=== PATIENT | male | born 1970 | race Caucasian/White ===

== ENCOUNTER → 2018-02-06 09:00 | Outpatient (CLI) | payer OTHER, SELFPAY ==
[2018-02-06 09:52] LABS: Add Manual Diff / Slide Review NO; Eosinophils Percent Auto 3.4 % (2-4); Hematocrit 45.7 % (41-53); Hemoglobin 15.3 g/dL (13.5-17.5); Lymphocytes Percent Auto 29.2 % (25-40); Mean Corpuscular HGB Conc 33.4 % (30-36); Mean Corpuscular Hemoglobin 29.1 PG (26-34); Mean Corpuscular Volume 87.2 fL (80-100); Monocytes Percent Auto 7.8 % (3-14); Neutrophils Absolute Auto 3500 /uL (3000-5900); Neutrophils Percent Auto 58.6 % (50-75); Platelet Count 198 X10^3/uL (150-400); Red Blood Cell Count 5.24 X10^6/uL (4.5-5.9); Red Cell Distribution Width 14.1 % (11.6-14.8); White Blood Cell Count 5.9 X10^3/uL (4.5-11.0)
[2018-02-06 10:03] LABS: Alanine Aminotransferase 32 IU/L (21-72); Albumin 4.2 g/dL (3.5-5.0); Albumin Globulin Ratio 1.3 (1.0-2.8); Alkaline Phosphatase 47 U/L (38-126); Aspartate Aminotransferase 18 IU/L (17-59); BUN Creatinine Ratio 28.6 (6-22); Bilirubin Total 0.7 mg/dL (0.2-1.3); Blood Urea Nitrogen 20 mg/dL (9-20); Calcium 9.3 mg/dL (8.4-10.2); Carbon Dioxide 29 mmol/L (22-32); Chloride 99 mmol/L (98-107); Cholesterol 214 mg/dL (140-199); Estimated Glomerular Filt Rate > 60.0 mL/min (>60); Globulin 3.2 g/dL (1.7-4.1); Glucose 226 mg/dL (70-100); HDL Cholesterol 52 mg/dL (40-60); HEMOLYSIS < 15 (0-50); LDL Cholesterol Calculated 146 mg/dL (<100); Potassium 5.3 mmol/L (3.4-5.1); Sodium 139 mmol/L (137-145); Total Protein 7.4 g/dL (6.3-8.2); Triglycerides 82 mg/dL (35-150)
[2018-02-06 10:05] LABS: Creatinine Urine Random 124.6 mg/dL
[2018-02-06 10:11] LABS: Microalbumi Creatinin Ratio Ur 11.2 ug/mg CR (<30); Microalbumin Urine Random 1.4 mg/dL (0-1.6)
[2018-02-06 10:33] LABS: Prostate Specific Antigen Scrn 0.342 ng/mL (0.1-4.0)
[2018-02-06 10:36] LABS: TSH w/ Reflex to FT4 1.11 uIU/mL (0.47-4.68)
[2018-02-06 12:30] LABS: Hemoglobin A1C% w Est Avg Glu 8.7 % (4.0-6.0)
== END ==
PROVIDERS: PCP Family Medicine; Visit Provider Family Medicine
DX: E11.9 Type 2 diabetes mellitus without complications (principal); Z00.00 Encounter for general adult medical examination without abnormal findings
CPT/HCPCS: 36415; 80053; 80061; 82043; 82570; 83036; 84443; 85025; G0103

== ENCOUNTER → 2018-10-15 12:35 | Outpatient (CLI) | payer OTHER, SELFPAY ==
[2018-10-15 13:12] LABS: Hemoglobin A1C% w Est Avg Glu 9.8 % (4.0-6.0)
[2018-10-15 15:21] LABS: Alanine Aminotransferase 46 IU/L (21-72); Albumin 4.3 g/dL (3.5-5.0); Albumin Globulin Ratio 1.7 (1.0-2.8); Alkaline Phosphatase 44 U/L (38-126); Aspartate Aminotransferase 20 IU/L (17-59); BUN Creatinine Ratio 25.7 (6-22); Bilirubin Total 0.9 mg/dL (0.2-1.3); Blood Urea Nitrogen 18 mg/dL (9-20); Calcium 9.7 mg/dL (8.4-10.2); Carbon Dioxide 27 mmol/L (22-32); Chloride 98 mmol/L (98-107); Cholesterol 156 mg/dL (140-199); Estimated Glomerular Filt Rate > 60.0 mL/min (>60); Globulin 2.6 g/dL (1.7-4.1); Glucose 241 mg/dL (70-100); HDL Cholesterol 38 mg/dL (40-60); HEMOLYSIS 17 (0-50); LDL Cholesterol Calculated 100 mg/dL (<100); Potassium 5.2 mmol/L (3.4-5.1); Sodium 137 mmol/L (137-145); Total Protein 6.9 g/dL (6.3-8.2); Triglycerides 90 mg/dL (35-150)
[2018-10-15 15:50] LABS: Prostate Specific Antigen Scrn 0.374 ng/mL (0.1-4.0)
[2018-10-15 15:53] LABS: TSH w/ Reflex to FT4 1.21 uIU/mL (0.47-4.68)
== END ==
PROVIDERS: PCP Family Medicine; Visit Provider Family Medicine
DX: E11.9 Type 2 diabetes mellitus without complications (principal); Z00.00 Encounter for general adult medical examination without abnormal findings; Z12.5 Encounter for screening for malignant neoplasm of prostate
CPT/HCPCS: 36415; 80053; 80061; 83036; 84443; G0103

== ENCOUNTER → 2019-12-26 09:12 | Outpatient (CLI) | payer OTHER, SELFPAY ==
[2019-12-26 10:03] LABS: Alanine Aminotransferase 26 IU/L (<50); Albumin 4.2 g/dL (3.5-5.0); Albumin Globulin Ratio 1.4 (1.0-2.8); Alkaline Phosphatase 45 U/L (38-126); Aspartate Aminotransferase 19 IU/L (17-59); BUN Creatinine Ratio 20.5 (6-22); Bilirubin Total 0.8 mg/dL (0.2-1.3); Blood Urea Nitrogen 15 mg/dL (9-20); Calcium 9.4 mg/dL (8.4-10.2); Carbon Dioxide 31 mmol/L (22-32); Chloride 98 mmol/L (98-107); Cholesterol 172 mg/dL (140-199); Estimated Glomerular Filt Rate > 60.0 mL/min (>60); Glucose 319 mg/dL (70-100); HDL Cholesterol 38 mg/dL (40-60); HEMOLYSIS 16 (0-50); LDL Cholesterol Calculated 116 mg/dL (<100); Potassium 4.7 mmol/L (3.4-5.1); Sodium 136 mmol/L (137-145); Total Protein 7.2 g/dL (6.3-8.2); Triglycerides 89 mg/dL (35-150)
[2019-12-26 10:08] LABS: Hemoglobin A1C% w Est Avg Glu 10.7 % (4.0-6.0)
== END ==
PROVIDERS: PCP Family Medicine; Referring Provider Family Medicine; Visit Provider Family Medicine
DX: E11.9 Type 2 diabetes mellitus without complications (principal); E78.5 Hyperlipidemia, unspecified
CPT/HCPCS: 36415; 80053; 80061; 83036

== ENCOUNTER → 2020-11-21 10:59 | Outpatient (CLI) | payer OTHER, SELFPAY ==
[2020-11-21 11:41] LABS: Add Manual Diff / Slide Review NO; Basophils Absolute Auto 100 /uL (0-100); Basophils Percent Auto 1.1 % (0-2); Eosinophils Absolute Auto 400 /uL (0-450); Eosinophils Percent Auto 6.7 % (2-4); Hematocrit 47.7 % (41-53); Hemoglobin 15.9 g/dL (13.5-17.5); Lymphocytes Absolute Auto 1800 /uL (1100-4500); Lymphocytes Percent Auto 31.9 % (25-40); Mean Corpuscular HGB Conc 33.3 % (30-36); Mean Corpuscular Volume 86.9 fL (80-100); Monocytes Absolute Auto 500 /uL (0-900); Monocytes Percent Auto 9.4 % (3-14); Neutrophils Absolute Auto 2900 /uL (1500-7000); Neutrophils Percent Auto 50.9 % (50-75); Platelet Count 181 X10^3/uL (150-400); Red Blood Cell Count 5.49 X10^6/uL (4.5-5.9); Red Cell Distribution Width 13.2 % (11.6-14.8); White Blood Cell Count 5.6 X10^3/uL (4.5-11.0)
[2020-11-21 11:57] LABS: Hemoglobin A1C% w Est Avg Glu 9.4 % (4.0-6.0)
[2020-11-21 12:13] LABS: Alanine Aminotransferase 28 IU/L (<50); Albumin 4.1 g/dL (3.5-5.0); Albumin Globulin Ratio 1.4 (1.0-2.8); Alkaline Phosphatase 43 U/L (38-126); Aspartate Aminotransferase 25 IU/L (17-59); BUN Creatinine Ratio 18.9 (6-22); Bilirubin Total 0.9 mg/dL (0.2-1.3); Blood Urea Nitrogen 14 mg/dL (9-20); Calcium 9.2 mg/dL (8.4-10.2); Carbon Dioxide 30 mmol/L (22-32); Chloride 99 mmol/L (98-107); Cholesterol 166 mg/dL (140-199); Estimated Glomerular Filt Rate > 60.0 mL/min (>60); Globulin 2.9 g/dL (1.7-4.1); Glucose 150 mg/dL (70-100); HDL Cholesterol 46 mg/dL (40-60); HEMOLYSIS < 15 (0-50); LDL Cholesterol Calculated 106 mg/dL (<100); Potassium 4.3 mmol/L (3.4-5.1); Sodium 137 mmol/L (137-145); Triglycerides 72 mg/dL (35-150)
[2020-11-21 12:41] LABS: Thyroid Stimulating Hormone 0.866 uIU/mL (0.47-4.68)
[2020-11-21 15:14] LABS: Creatinine Urine Random 183.9 mg/dL
[2020-11-21 15:25] LABS: Microalbumi Creatinin Ratio Ur 27.7 ug/mg CR (<30); Microalbumin Urine Random 5.1 mg/dL (0-1.6)
== END ==
PROVIDERS: PCP Family Medicine; Referring Provider Family Medicine; Visit Provider Family Medicine
DX: E66.01 Morbid (severe) obesity due to excess calories (principal); E78.5 Hyperlipidemia, unspecified
CPT/HCPCS: 36415; 80053; 80061; 82043; 82570; 83036; 84443; 85025

== ENCOUNTER → 2020-12-07 07:46 | Outpatient (CLI) | payer OTHER, SELFPAY ==
[2020-12-07] MEDS: COVID-19 VACC #1, MRNA(MOD) 100 MCG/0.5 ML VIAL IM (07:58)
== END ==
PROVIDERS: PCP Family Medicine; Visit Provider Internal Medicine
DX: Z23 Encounter for immunization (principal)
CPT/HCPCS: 0011A; 91301

== ENCOUNTER → 2021-01-04 07:40 | Outpatient (CLI) | payer OTHER, SELFPAY ==
[2021-01-04] MEDS: COVID-19 VACC #2, MRNA(MOD) 100 MCG/0.5 ML VIAL IM (07:55)
== END ==
PROVIDERS: PCP Family Medicine; Visit Provider Internal Medicine
DX: Z23 Encounter for immunization (principal)
CPT/HCPCS: 0012A; 91301

== ENCOUNTER 2021-05-28 22:09 | Emergency (ER) | payer OTHER, SELFPAY ==
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
[2021-05-28 22:14] VITALS: BP 176/94; PULSE 94; RESP 15; TEMP 36.9; O2SAT 98; BMI 54.2
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
[2021-05-28] MEDS: ACETAMINOPHEN 325 MG TABLET 975 MG PO (22:54)
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
[2021-05-28] MEDS: CYCLOBENZAPRINE 10 MG PREPACK 1 BOTTLE MISC (23:29)
== END 2021-05-28 23:32 | disposition home or self-care (01) ==
PROVIDERS: Emergency Provider Emergency Medicine; PCP Family Medicine
DX: S63.501A Unspecified sprain of right wrist, initial encounter (principal); R07.89 Other chest pain; V89.2XXA Person injured in unspecified motor-vehicle accident, traffic, initial encounter
CPT/HCPCS: 71046; 73110; 99283

== ENCOUNTER → 2021-06-19 09:40 | Outpatient (CLI) | payer OTHER, SELFPAY ==
[2021-06-19 11:06] LABS: Creatinine Urine Random 122.6 mg/dL
[2021-06-19 11:09] LABS: Hemoglobin A1C% w Est Avg Glu 8.8 % (4.0-6.0)
[2021-06-19 11:10] LABS: Microalbumi Creatinin Ratio Ur 25.2 ug/mg CR (<30); Microalbumin Urine Random 3.1 mg/dL (0-1.6)
[2021-06-19 11:22] LABS: BUN Creatinine Ratio 21.9 (6-22); Blood Urea Nitrogen 14 mg/dL (9-20); Calcium 9.5 mg/dL (8.4-10.2); Carbon Dioxide 28 mmol/L (22-32); Chloride 103 mmol/L (98-107); Cholesterol 174 mg/dL (140-199); Estimated Glomerular Filt Rate > 60.0 mL/min (>60); Glucose 123 mg/dL (70-100); HDL Cholesterol 45 mg/dL (40-60); HEMOLYSIS < 15 (0-50); LDL Cholesterol Calculated 113 mg/dL (<100); Potassium 4.6 mmol/L (3.4-5.1); Sodium 139 mmol/L (137-145); Triglycerides 82 mg/dL (35-150)
== END ==
PROVIDERS: PCP Family Medicine; Referring Provider Family Medicine; Visit Provider Family Medicine
DX: E11.9 Type 2 diabetes mellitus without complications (principal); E78.5 Hyperlipidemia, unspecified
CPT/HCPCS: 36415; 80048; 80061; 82043; 82570; 83036

== ENCOUNTER → 2021-10-19 08:09 | Outpatient (CLI) | payer OTHER, SELFPAY ==
[2021-10-19 09:27] LABS: Hemoglobin A1C% w Est Avg Glu 7.5 % (4.0-6.0)
[2021-10-19 09:34] LABS: BUN Creatinine Ratio 22.4 (6-22); Blood Urea Nitrogen 19 mg/dL (9-20); Calcium 9.3 mg/dL (8.4-10.2); Carbon Dioxide 32 mmol/L (22-32); Chloride 102 mmol/L (98-107); Estimated Glomerular Filt Rate > 60.0 mL/min (>60); Glucose 109 mg/dL (70-100); HEMOLYSIS < 15 (0-50); Potassium 4.5 mmol/L (3.4-5.1); Sodium 139 mmol/L (137-145)
[2021-10-19 10:02] LABS: Prostate Specific Antigen Scrn 0.395 ng/mL (0.1-4.0)
[2021-10-19 11:00] LABS: Creatinine Urine Random 125.3 mg/dL
[2021-10-19 11:04] LABS: Microalbumi Creatinin Ratio Ur 12.7 ug/mg CR (<30); Microalbumin Urine Random 1.6 mg/dL (0-1.6)
== END ==
PROVIDERS: PCP Family Medicine; Referring Provider Family Medicine; Visit Provider Family Medicine
DX: E11.9 Type 2 diabetes mellitus without complications (principal); E78.5 Hyperlipidemia, unspecified; Z12.5 Encounter for screening for malignant neoplasm of prostate
CPT/HCPCS: 36415; 80048; 82043; 82570; 83036; 84443; G0103

== ENCOUNTER → 2022-03-02 12:04 | Outpatient (CLI) | payer OTHER, SELFPAY | PROVIDERS: PCP Family Medicine; Visit Provider Nurse Practitioner Family | DX: L02.91 Cutaneous abscess, unspecified (principal) | CPT/HCPCS: 87070; 87077; 87147; 87185; 87186; 87205 ==

== ENCOUNTER → 2022-12-11 10:32 | Outpatient (CLI) | payer OTHER, SELFPAY ==
[2022-12-11 11:30] LABS: Add Manual Diff / Slide Review NO; Basophils Absolute Auto 100 /uL (0-100); Eosinophils Absolute Auto 400 /uL (0-450); Eosinophils Percent Auto 7.1 % (2-4); Hematocrit 44.5 % (41-53); Hemoglobin 14.7 g/dL (13.5-17.5); Lymphocytes Absolute Auto 1700 /uL (1100-4500); Lymphocytes Percent Auto 31.8 % (25-40); Mean Corpuscular HGB Conc 33.1 % (30-36); Mean Corpuscular Hemoglobin 28.5 PG (26-34); Mean Corpuscular Volume 86.1 fL (80-100); Monocytes Absolute Auto 500 /uL (0-900); Monocytes Percent Auto 9.9 % (3-14); Neutrophils Absolute Auto 2700 /uL (1500-7000); Neutrophils Percent Auto 50.2 % (50-75); Platelet Count 206 X10^3/uL (150-400); Red Blood Cell Count 5.16 X10^6/uL (4.5-5.9); Red Cell Distribution Width 15.3 % (11.6-14.8); White Blood Cell Count 5.3 X10^3/uL (4.5-11.0)
[2022-12-11 11:57] LABS: Alanine Aminotransferase 31 IU/L (<50); Albumin 3.8 g/dL (3.5-5.0); Albumin Globulin Ratio 1.4 (1.0-2.8); Alkaline Phosphatase 45 U/L (38-126); Aspartate Aminotransferase 22 IU/L (17-59); BUN Creatinine Ratio 21.7 (6-22); Bilirubin Total 0.7 mg/dL (0.2-1.3); Blood Urea Nitrogen 18 mg/dL (9-20); Calcium 9.2 mg/dL (8.4-10.2); Carbon Dioxide 32 mmol/L (22-32); Chloride 101 mmol/L (98-107); Cholesterol 165 mg/dL (140-199); Estimated Glomerular Filt Rate > 60 mL/min (>60); Globulin 2.8 g/dL (1.7-4.1); Glucose 84 mg/dL (70-100); HDL Cholesterol 43 mg/dL (40-60); HEMOLYSIS < 15 (0-50); LDL Cholesterol Calculated 110 mg/dL (<100); Potassium 4.9 mmol/L (3.4-5.1); Sodium 138 mmol/L (137-145); Total Protein 6.6 g/dL (6.3-8.2); Triglycerides 61 mg/dL (35-150)
[2022-12-11 11:58] LABS: Creatinine Urine Random 132.8 mg/dL
[2022-12-11 12:02] LABS: Microalbumi Creatinin Ratio Ur 7.5 ug/mg CR (<30)
[2022-12-11 12:26] LABS: Thyroid Stimulating Hormone 0.681 uIU/mL (0.47-4.68)
[2022-12-12 04:35] LABS: Labcorp Hemoglobin (Hb) A1c 7.3 % (4.8-5.6)
== END ==
PROVIDERS: PCP Family Medicine; Referring Provider Physician Assistant; Visit Provider Physician Assistant
DX: E66.01 Morbid (severe) obesity due to excess calories (principal); E78.2 Mixed hyperlipidemia
CPT/HCPCS: 80053; 80061; 82043; 82570; 83036; 84443; 85025

== ENCOUNTER → 2022-12-14 08:30 | Outpatient (CLI) | payer OTHER, SELFPAY | PROVIDERS: PCP Family Medicine; Referring Provider Physician Assistant; Visit Provider Physician Assistant | DX: Z12.11 Encounter for screening for malignant neoplasm of colon (principal); Z12.12 Encounter for screening for malignant neoplasm of rectum | CPT/HCPCS: 82274 ==

== ENCOUNTER → 2023-01-10 09:38 | Outpatient (CLI) | payer OTHER, SELFPAY ==
[2023-01-11 14:38] LABS: Fecal Immunochemical Test Negative (Negative)
== END ==
PROVIDERS: PCP Family Medicine; Referring Provider Physician Assistant; Visit Provider Physician Assistant
DX: Z12.11 Encounter for screening for malignant neoplasm of colon (principal)
CPT/HCPCS: 82274

== ENCOUNTER → 2023-01-23 09:11 | Outpatient (CLI) | payer OTHER, SELFPAY ==
--- NOTE | 2023-01-23 09:55 | DIAB.INIT ---
Initial Diabetes Education Assessment Name: Christopher Pat Date: 01/23/23 Time: 930-10a Dx: Type II Diabetes Provider: Edgard/Evangelina Christopher presents for initial Dm visit. He is interested in CGM. Currently on oral Dm meds and NPH BID. Reports PMH of Dm for 8 years. No known FH of DM. Improved hgA1c over last year with recent lab of 7.3%. 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 Eats two meals per day, breakfast and late dinner. States his job is more physical, which helps with BG management. His phone is not compatible with Dexcom, so he has decided to try [employer] 2. Self-Monitoring Blood Glucose: Meter battery recently needs replacement. Plans to do this today. Was checking FBG and 4p in afternoon ac reading. States FBG are often 130s and afternoon 90-120s mg/dl. Also reports some lows over the last year, but unclear of reading during a low. States he has symptoms of hypo and will treat with honey. Diabetes Medications: Glimepiride 2mg Metformin 1000mg BID NPH 50u BID Pertinent Labs: HgA1c: 7.5% 10/2021 7.3% 12/2022 Past Medical History: (Last Reviewed 04/29/22 @ 09:52 by JAME Martines) Ankle pain (~1994) Diabetes mellitus (~2013) Foot pain (~1994) Intervention: This participant was very receptive. Provided appropriate educational handouts. Discussed the following topics: Importance of self-monitoring, SMBG versus CGM Discussed CGM placement, use and precautions Reviewed swiping for BG reading at least q 8 hours, what arrows indicate, hypoglycemia precautions, and compression lows Reviewed genetic predisposition of T2Dm and lifestyle in brief Christopher successfully self placed CGM with guidance Created SMART goals for patient self-care and success. Goals: Trial FSL2 for 14 days Swipe 3x per day min Follow-up: [facility] follow-up in 3 weeks. Will review diabetes ed and run CGM reports. Unclear if his insurance will require 2 or 3 injections per day to qualify. YOLIS/LIAM has reached out to rep for confirmation on coverage. If Christopher likes the CGM and his insurance will cover, will contact provider for next steps/PA. Kasey Altman RDN, LIAM Certified Diabetes Care and Power Nut Runner Operator P: [phone] Thank you for this referral
== END ==
PROVIDERS: Absent Provider Family Medicine; Family Provider Family Medicine; PCP Family Medicine; Referring Provider Physician Assistant; Visit Provider Physician Assistant
DX: E11.9 Type 2 diabetes mellitus without complications (principal); E66.01 Morbid (severe) obesity due to excess calories; Z79.4 Long term (current) use of insulin; E78.5 Hyperlipidemia, unspecified; Z79.84 Long term (current) use of oral hypoglycemic drugs
CPT/HCPCS: G0108

== ENCOUNTER → 2023-02-13 08:39 | Outpatient (CLI) | payer OTHER, SELFPAY ==
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
== END ==
PROVIDERS: Family Provider Family Medicine; PCP Family Medicine; Referring Provider Family Medicine; Visit Provider Family Medicine
DX: E11.9 Type 2 diabetes mellitus without complications (principal); Z79.84 Long term (current) use of oral hypoglycemic drugs; Z79.4 Long term (current) use of insulin; Z71.3 Dietary counseling and surveillance
CPT/HCPCS: 97802

== ENCOUNTER → 2023-04-08 11:29 | Outpatient (CLI) | payer OTHER, SELFPAY ==
[2023-04-09 06:06] LABS: Labcorp Hemoglobin (Hb) A1c 7.6 % (4.8-5.6)
== END ==
PROVIDERS: Family Provider Family Medicine; PCP Family Medicine; Referring Provider Family Medicine; Visit Provider Family Medicine
DX: E11.9 Type 2 diabetes mellitus without complications (principal); Z79.4 Long term (current) use of insulin; E66.01 Morbid (severe) obesity due to excess calories
CPT/HCPCS: 36415; 83036

== ENCOUNTER → 2023-12-28 08:59 | Outpatient (CLI) | payer OTHER, SELFPAY ==
[2023-12-28 10:09] LABS: Hemoglobin A1C% w Est Avg Glu 6.6 % (4.0-6.0)
[2023-12-28 10:20] LABS: Cholesterol 150 mg/dL (140-199); HDL Cholesterol 44 mg/dL (40-60); LDL Cholesterol Calculated 94 mg/dL (<100); Triglycerides 59 mg/dL (35-150)
[2023-12-28 10:49] LABS: TSH w/ Reflex to FT4 1.13 uIU/mL (0.47-4.68)
== END ==
PROVIDERS: Family Provider Family Medicine; PCP Family Medicine; Referring Provider Family Medicine; Visit Provider Family Medicine
DX: E11.9 Type 2 diabetes mellitus without complications (principal); Z79.4 Long term (current) use of insulin; E78.5 Hyperlipidemia, unspecified
CPT/HCPCS: 36415; 80061; 83036; 84443

== ENCOUNTER → 2024-04-28 12:56 | Outpatient (CLI) | payer OTHER, SELFPAY | PROVIDERS: Family Provider Family Medicine; PCP Family Medicine; Visit Provider Physician Assistant Medical | DX: R30.0 Dysuria (principal) | CPT/HCPCS: 87077; 87086 ==

== ENCOUNTER 2024-08-13 16:06 | Emergency (ER) | payer OTHER, SELFPAY ==
[2024-08-13] VITALS (9 sets, daily range): BP systolic 113–177; BP diastolic 62–86; PULSE 82–97; RESP 18–20; TEMP 36.9; O2SAT 92–98; BMI 51.5
--- NOTE | 2024-08-13 16:49 | ED.SKABFB ---
HPI - Skin/Abscess/Foreign Bdy <Stanley Smith, DO - Last Filed: 08/15/24 18:39> General Chief complaint: Skin/Abscess/Foreign Body Stated complaint: skin infection Time Seen by Provider: 08/13/24 16:41 Source: patient Mode of arrival: Ambulatory Limitations: no limitations History of Present Illness HPI narrative: 54-year-old male. He has an insulin-dependent diabetic. Is here for evaluation of approximately 3 days of worsening redness and swelling to the right inguinal/thigh area. No fevers. No problems urinating. Patient went to the walk-in clinic and was sent to the emergency department for further evaluation. No trauma to the area. No abdominal pain or change in bowel habits. Related Data Previous Rx's Medication Instructions Recorded Glucose: Home Monitoring Kit #1 ea 12/31/19 glucose lancets #100 ea 12/31/19 blood sugar diagnostic (Blood #200 strips 01/14/20 Glucose Test strips) sildenafil (pulm.hypertension) 20 100 mg (5 x 20 mg) PO QDAY #30 tabs 12/11/22 mg tablet pen needle, diabetic 31 gauge x #100 ea 06/25/23/16 (Pentips) cephalexin 500 mg capsule 500 mg PO TID #21 caps 04/28/24 phenazopyridine 200 mg tablet 200 mg PO TID PRN pain 6 doses #6 04/28/24 (Pyridium) tabs atorvastatin 20 mg tablet 20 mg PO DAILY #90 tabs 07/06/24 escitalopram oxalate 10 mg tablet 10 mg PO DAILY #90 tabs 07/06/24 glimepiride 2 mg tablet 2 mg PO BID #180 tabs 07/06/24 insulin NPH isoph U-100 human 100 52 unit (0.52 mL) SUBCUT BID #45 mL 07/06/24 unit/mL (3 mL) subcutaneous pen (Humulin N NPH U-100 Insulin KwikPen) lisinopril 40 mg tablet 40 mg PO DAILY #90 tabs 07/06/24 metformin 1,000 mg tablet See Rx Instructions .Route 07/06/24 .COMPLEX #180 tabs clindamycin HCl 300 mg capsule 300 mg PO Q6H Dental infection 7 08/13/24 days #28 caps doxycycline hyclate 100 mg capsule 100 mg PO DAILY #14 caps 08/13/24 Allergies Allergy/AdvReac Type Severity Reaction Status Date / Time No Known Drug Allergies Allergy Verified 08/13/24 16:13 Review of Systems <Stanley Smith DO - Last Filed: 08/15/24 18:39> Review of Systems ROS Unobtainable: All systems reviewed & are unremarkable except as noted in HPI and below <Favio Anderson MD - Last Filed: 08/13/24 21:12> Review of Systems Narrative: see HPI Patient History <Stanley Smith DO - Last Filed: 08/15/24 18:39> Medical History Foot pain (~1994) Ankle pain (~1994) Diabetes mellitus (~2013) Surgical History Pilonidal cyst (~1989) Family History Mother Hypertension High cholesterol Father No problems noted. Social History Smoking Status: Former smoker Smoking Status: Former smoker alcohol intake frequency: 0-2 drinks per day Exam <Stanley Smith DO - Last Filed: 08/15/24 18:39> Initial Vital Signs Initial Vital Signs: Vital Signs Temperature 98.4 F 08/13/24 16:08 Pulse Rate 92 H 08/13/24 16:08 Respiratory Rate 18 08/13/24 16:08 Blood Pressure 113/62 08/13/24 16:08 Pulse Oximetry 98 08/13/24 16:08 Oxygen Delivery Method Room Air 08/13/24 16:08 Const General: cooperative, comfortable and No ill appearing Resp Effort & Inspection: normal respiratory effort Cardio Rate: regular rate GI Inspection: normal to inspection and non-distended Other: Normal external male genitalia. Erythema does not involve the scrotum or testicles or penis. Skin Other: Patient has a large area of cellulitis to the right upper inner thigh. There is a smaller area of induration right in the inguinal fold. No pustules. No vesicles. No drainage. No crepitus. Does not involve the scrotum. Neuro General: patient alert, patient awake and moves all extremities <Favio Anderson MD - Last Filed: 08/13/24 21:12> Initial Vital Signs Initial Vital Signs: Vital Signs Temperature 98.4 F 08/13/24 16:08 Pulse Rate 92 H 08/13/24 16:08 Respiratory Rate 18 08/13/24 16:08 Blood Pressure 113/62 08/13/24 16:08 Pulse Oximetry 98 08/13/24 16:08 Oxygen Delivery Method Room Air 08/13/24 16:08 Course <Stanley Smith DO - Last Filed: 08/15/24 18:39> Orders Ordered: Discontinued Medications Doxycycline Hyclate (Doxycycline Hyclate 100 Mg Tablet) 100 mg PO NOW ONE Stop: 08/13/24 19:14 Last Admin: 08/13/24 19:19 Dose: 100 mg Documented By: ELVA Ceftriaxone Sodium 1,000 mg/ (Sodium Chloride) 100 mls @ 200 mls/hr IV NOW ONE Stop: 08/13/24 18:40 Last Infusion: 08/13/24 19:49 Dose: Infused Documented By: Admin: 08/13/24 19:17 Dose: 200 mls/hr Documented By: ELVA Clindamycin Phosphate (Cleocin) 900 mg in 50 mls @ 50 mls/hr IV NOW ONE Stop: 08/13/24 20:12 Last Infusion: 08/13/24 21:00 Dose: Infused Documented By: Admin: 08/13/24 19:45 Dose: 50 mls/hr Documented By: ELVA Ondansetron HCl (Ondansetron 4 Mg/2 Ml Inj) 4 mg IV NOW ONE Stop: 08/13/24 17:33 Last Admin: 08/13/24 17:40 Dose: 4 mg Documented By: ELVA Vital Signs Vital signs: Vital Signs - 8 hr 08/13/24 16:08 08/13/24 17:38 08/13/24 17:39 Temperature 98.4 F Pulse Rate 92 H Respiratory Rate 18 Blood Pressure 113/62 167/78 H Pulse Oximetry 98 96 Oxygen Delivery Method Room Air 08/13/24 17:39 08/13/24 18:00 08/13/24 18:00 Temperature Pulse Rate 97 H 92 H Respiratory Rate Blood Pressure 160/78 H Pulse Oximetry 96 92 Oxygen Delivery Method 08/13/24 18:30 08/13/24 18:30 08/13/24 19:00 Temperature Pulse Rate 90 Respiratory Rate Blood Pressure 165/78 H 177/86 H Pulse Oximetry 97 Oxygen Delivery Method 08/13/24 19:00 08/13/24 19:30 08/13/24 19:30 Temperature Pulse Rate 92 H 85 Respiratory Rate 18 20 Blood Pressure 157/81 H Pulse Oximetry 98 95 Oxygen Delivery Method 08/13/24 20:00 08/13/24 20:00 08/13/24 20:30 Temperature Pulse Rate 82 Respiratory Rate 19 Blood Pressure 144/76 H 155/83 H Pulse Oximetry 95 Oxygen Delivery Method 08/13/24 20:30 Temperature Pulse Rate 86 Respiratory Rate Blood Pressure Pulse Oximetry 97 Oxygen Delivery Method <Favio Anderson MD - Last Filed: 08/13/24 21:12> Orders Ordered: Discontinued Medications Doxycycline Hyclate (Doxycycline Hyclate 100 Mg Tablet) 100 mg PO NOW ONE Stop: 08/13/24 19:14 Last Admin: 08/13/24 19:19 Dose: 100 mg Documented By: ELVA Ceftriaxone Sodium 1,000 mg/ (Sodium Chloride) 100 mls @ 200 mls/hr IV NOW ONE Stop: 08/13/24 18:40 Last Infusion: 08/13/24 19:49 Dose: Infused Documented By: Admin: 08/13/24 19:17 Dose: 200 mls/hr Documented By: ELVA Clindamycin Phosphate (Cleocin) 900 mg in 50 mls @ 50 mls/hr IV NOW ONE Stop: 08/13/24 20:12 Last Infusion: 08/13/24 21:00 Dose: Infused Documented By: Admin: 08/13/24 19:45 Dose: 50 mls/hr Documented By: ELVA Ondansetron HCl (Ondansetron 4 Mg/2 Ml Inj) 4 mg IV NOW ONE Stop: 08/13/24 17:33 Last Admin: 08/13/24 17:40 Dose: 4 mg Documented By: ELVA Vital Signs Vital signs: Vital Signs - 8 hr 08/13/24 16:08 08/13/24 17:38 08/13/24 17:39 Temperature 98.4 F Pulse Rate 92 H Respiratory Rate 18 Blood Pressure 113/62 167/78 H Pulse Oximetry 98 96 Oxygen Delivery Method Room Air 08/13/24 17:39 08/13/24 18:00 08/13/24 18:00 Temperature Pulse Rate 97 H 92 H Respiratory Rate Blood Pressure 160/78 H Pulse Oximetry 96 92 Oxygen Delivery Method 08/13/24 18:30 08/13/24 18:30 08/13/24 19:00 Temperature Pulse Rate 90 Respiratory Rate Blood Pressure 165/78 H 177/86 H Pulse Oximetry 97 Oxygen Delivery Method 08/13/24 19:00 08/13/24 19:30 08/13/24 19:30 Temperature Pulse Rate 92 H 85 Respiratory Rate 18 20 Blood Pressure 157/81 H Pulse Oximetry 98 95 Oxygen Delivery Method 08/13/24 20:00 08/13/24 20:00 08/13/24 20:30 Temperature Pulse Rate 82 Respiratory Rate 19 Blood Pressure 144/76 H 155/83 H Pulse Oximetry 95 Oxygen Delivery Method 08/13/24 20:30 Temperature Pulse Rate 86 Respiratory Rate Blood Pressure Pulse Oximetry 97 Oxygen Delivery Method MDM - Skin/Abscess/Foreign Bdy <Stanley Smith DO - Last Filed: 08/15/24 18:39> Lab Data Attestation: I reviewed the patient's lab results. 08/13/24 17:15 08/13/24 17:15 Labs: Lab Results 08/13/24 Range/Units 17:15 WBC 14.7 H (4.5-11.0) X10^3/uL RBC 5.07 (4.5-5.9) X10^6/uL Hgb 14.6 (13.5-17.5) g/dL Hct 44.3 (41-53) % MCV 87.3 (80-100) fL MCH 28.7 (26-34) PG MCHC 32.9 (30-36) % RDW 13.8 (11.6-14.8) % Plt Count 224 (150-400) X10^3/uL Neut % (Auto) 85.3 H (50-75) % Lymph % (Auto) 6.0 L (25-40) % [place] % (Auto) 8.1 (3-14) % Eos % (Auto) 0.3 L (2-4) % Baso % (Auto) 0.3 (0-2) % Neut # (Auto) 85990 H (5588-6674) /uL Lymph # (Auto) 900 L (3222-6164) /uL [place] # (Auto) 1200 H (0-900) /uL Eos # (Auto) 0 (0-450) /uL Baso # (Auto) 0 (0-100) /uL Sodium 134 L (137-145) mmol/L Potassium 4.5 (3.4-5.1) mmol/L Chloride 97 L (98-107) mmol/L Carbon Dioxide 28 (22-32) mmol/L BUN 16 (9-20) mg/dL Creatinine 0.82 (0.66-1.25) mg/dL Estimated GFR > 60 (>60) mL/min BUN/Creatinine Ratio 19.5 (6-22) Glucose 264 H (70-100) mg/dL Lactate 2.0 (0.7-2.1) mmol/L Calcium 9.6 (8.4-10.2) mg/dL Total Bilirubin 1.4 H (0.2-1.3) mg/dL AST 20 (17-59) IU/L ALT 22 (<50) IU/L Alkaline Phosphatase 60 (38-126) U/L Total Protein 7.2 (6.3-8.2) g/dL Albumin 3.9 (3.5-5.0) g/dL Globulin 3.3 (1.7-4.1) g/dL Albumin/Globulin Ratio 1.2 (1.0-2.8) Lipase 22 L (23-300) U/L MDM Narrative Medical decision making narrative: Patient was an insulin-dependent diabetic. Has a obvious cellulitis to his right inguinal region/upper thigh. Bedside ultrasound does not show abscess. Does not involve his scrotum. No crepitus but given the patient's body habitus and the size of the cellulitis and that he was an insulin-dependent diabetic a CT scan was ordered to evaluate for deep space infection. Care turned over to Dr. Anderson to follow-up on CT scan and disposition. <Favio Anderson MD - Last Filed: 08/13/24 21:12> Lab Data Labs: Lab Results 08/13/24 Range/Units 17:15 WBC 14.7 H (4.5-11.0) X10^3/uL RBC 5.07 (4.5-5.9) X10^6/uL Hgb 14.6 (13.5-17.5) g/dL Hct 44.3 (41-53) % MCV 87.3 (80-100) fL MCH 28.7 (26-34) PG MCHC 32.9 (30-36) % RDW 13.8 (11.6-14.8) % Plt Count 224 (150-400) X10^3/uL Neut % (Auto) 85.3 H (50-75) % Lymph % (Auto) 6.0 L (25-40) % [place] % (Auto) 8.1 (3-14) % Eos % (Auto) 0.3 L (2-4) % Baso % (Auto) 0.3 (0-2) % Neut # (Auto) 09568 H (4812-1112) /uL Lymph # (Auto) 900 L (0074-8030) /uL [place] # (Auto) 1200 H (0-900) /uL Eos # (Auto) 0 (0-450) /uL Baso # (Auto) 0 (0-100) /uL Sodium 134 L (137-145) mmol/L Potassium 4.5 (3.4-5.1) mmol/L Chloride 97 L (98-107) mmol/L Carbon Dioxide 28 (22-32) mmol/L BUN 16 (9-20) mg/dL Creatinine 0.82 (0.66-1.25) mg/dL Estimated GFR > 60 (>60) mL/min BUN/Creatinine Ratio 19.5 (6-22) Glucose 264 H (70-100) mg/dL Lactate 2.0 (0.7-2.1) mmol/L Calcium 9.6 (8.4-10.2) mg/dL Total Bilirubin 1.4 H (0.2-1.3) mg/dL AST 20 (17-59) IU/L ALT 22 (<50) IU/L Alkaline Phosphatase 60 (38-126) U/L Total Protein 7.2 (6.3-8.2) g/dL Albumin 3.9 (3.5-5.0) g/dL Globulin 3.3 (1.7-4.1) g/dL Albumin/Globulin Ratio 1.2 (1.0-2.8) Lipase 22 L (23-300) U/L Imaging Data CT pelvis and right thigh: Radiologist's Impression: [address] [address] [address] Scan Report Signed Patient: Christopher Pat MR#: [id number] : 1970 Acct:[id number] Age/Sex: 54 / M Date of Service: 08/13/24 Loc: ED Accession Number: [id number] Procedure: CT pelvis w con Ordering Provider: Stanley Smith D.O. PROCEDURE: CT PELVIS W CON INDICATIONS: R inguinal/upper thigh cellulitis, eval for Balaji's. TECHNIQUE: After the administration of intravenous contrast, 5 mm thick sections acquired from the iliac crests to the symphysis. 5 mm coronal and sagittal reformats were acquired. For radiation dose reduction, the following was used: automated exposure control, adjustment of mA and/or kV according to patient size. COMPARISON: None. FINDINGS: Image quality: Poor; motion artifact limits evaluation. PELVIS: Peritoneum and Bowel: Bowel loops demonstrate normal wall thickness and caliber. No free fluid or air. Pelvic Organs: No pelvic mass. Bladder: Normal wall thickness, accounting for underdistension. No perivesicular fat stranding. Pelvic Nodes: No enlarged lymph nodes. Small right inguinal nodes are present, likely reactive. Miscellaneous: Fat stranding and skin thickening is present around the right medial thigh and inguinal region (2/130) without a drainable fluid collection. Bones: No aggressive osseous abnormality. Bilateral L5-S1 pars interarticularis defects with grade 1 anterolisthesis of L5 on S1. IMPRESSION: Fat stranding in the right medial thigh and inguinal region, without a drainable abscess. These findings can be seen with cellulitis. Dictated by: Paulie Uriostegui M.D. on 08/13/2024 at 18:20 Approved by: Paulie Uriostegui M.D. on 08/13/2024 at 18:23 [facility] Narrative Medical decision making narrative: Patient was an insulin-dependent diabetic. Has a obvious cellulitis to his right inguinal region/upper thigh. Bedside ultrasound does not show abscess. Does not involve his scrotum. No crepitus but given the patient's body habitus and the size of the cellulitis and that he was an insulin-dependent diabetic a CT scan was ordered to evaluate for deep space infection. Care turned over to Dr. Anderson to follow-up on CT scan and disposition. 08/13/2024, Justin Prado. Sign-out from Dr. Smith. 54-year-old male with history of diabetes on insulin, has right groin area rash appearance of cellulitis, bedside ultrasound by provider showed no obvious fluid collection, CT pelvis with extension to right thigh ordered, to be performed. No antibiotics given thus far. Assumed care. CT shows cellulitis changes in the groin and anterior thigh area. No drainable fluid. No subcutaneous gas, no foreign bodies. See radiology report. White blood cell count [id number], lactate 2.0 noted, blood cultures requested. CT results discussed with patient, history of diabetes noted, we will initiate IV antibiotics with ceftriaxone. Consider admission given comorbidity diabetes, we will consult with hospitalist, patient agreeable to the admission if recommended, but also could be treated as an outpatient. We will discuss case with hospitalist for an opinion. PCP Evangelina, Dr. Hammonds cross covering was paged Case discussed with Dr. Hammonds, case reviewed, for now we will treat as an outpatient with close follow up tomorrow, we will discharge on clindamycin and doxycycline. We will give dose IV clindamycin here, and oral doxycycline 1st dose. Further antibiotic clindamycin and doxycycline prescription sent to his pharmacy. Patient was amenable to this approach. We will follow up with Dr. Hutchinson or Dr. Hammonds or repeat evaluation here tomorrow evening in the emergency department. Return precautions also discussed, should he require further evaluation earlier Discharge Plan Departure Patient Disposition: Home Clinical Impression: Cellulitis, History of diabetes mellitus Activity Restrictions/Additional Instructions: Right groin region and thigh region redness, suspicious for cellulitis. History of diabetes. CT scanning performed, no drainable fluid collection, consistent with cellulitis as clinically suspected. Initial IV ceftriaxone given. Communication was made with your cross covering Dr. Hammonds, who was covering for your regular doctor Evangelina, to discuss whether or not to admit you for further IV antibiotics versus close follow up as an outpatient on oral antibiotics. She felt that you were stable for outpatient trial with close follow up for now. You seemed agreeable to this plan. We gave additionally IV clindamycin antibiotic and oral doxycycline antibiotic. I will send prescriptions for further antibiotics for you to take oral clindamycin and oral doxycycline antibiotic, sent to your pharmacy. Recheck tomorrow in clinic of Dr. Hutchinson or Dr. Hammonds, or if you can not make arrangements with them you could be seen here tomorrow evening as well for recheck. Keep taking your diabetic and other chronic medications as planned. Return earlier to this/nearest emergency department for any change worsening symptoms or any concerns prior Prescriptions: New clindamycin HCl 300 mg capsule 300 mg PO Q6H 7 Days Qty: 28 0RF doxycycline hyclate 100 mg capsule 100 mg PO DAILY Qty: 14 0RF No Action sildenafil (pulm.hypertension) 20 mg tablet 100 mg PO QDAY Qty: 30 1RF cephalexin 500 mg capsule 500 mg PO TID Qty: 21 0RF phenazopyridine [Pyridium] 200 mg tablet 200 mg PO TID PRN (Reason: pain) Qty: 6 0RF (DME) Glucose: Home Monitoring Kit 0 .Route .MEDSUPPLY Qty: 1 1RF Rx Instructions: As directed for daily blood glucose checks (DME) glucose lancets Qty: 100 3RF Rx Instructions: As directed for daily blood glucose testing (DME) pen needle, diabetic [Pentips] 31 gauge x 3/16 needle See Rx Instructions .ROUTE .MEDSUPPLY Qty: 100 3RF Rx Instructions: used twice daily for insulin injections glimepiride 2 mg tablet 2 mg PO BID Qty: 180 1RF escitalopram oxalate 10 mg tablet 10 mg PO DAILY Qty: 90 1RF Rx Instructions: Take 1 tablet once daily atorvastatin 20 mg tablet 20 mg PO DAILY Qty: 90 1RF Humulin N NPH Insulin KwikPen 100 unit/mL (3 mL) insulin pen 52 unit SUBCUT BID Qty: 45 1RF Rx Instructions: Inject 52 units under the skin twice daily. lisinopril 40 mg tablet 40 mg PO DAILY Qty: 90 1RF metformin 1,000 mg tablet See Rx Instructions .ROUTE .COMPLEX Qty: 180 1RF Dose Instruction: take 1 tablet by mouth twice a day with meals Rx Instructions: take 1 tablet by mouth twice a day with meals (DME) blood sugar diagnostic [Blood Glucose Test] Strip See Rx Instructions .ROUTE .MEDSUPPLY Qty: 200 3RF Rx Instructions: check blood sugar twice day, fasting am, non fasting pm Referrals: El Hutchinson MD [Primary Care Provider] - Brooke Hammonds MD [Physician] - Stand Alone Forms: Patient Portal/API/Survey
[2024-08-13 17:31] LABS: Add Manual Diff / Slide Review NO; Basophils Absolute Auto 0 /uL (0-100); Basophils Percent Auto 0.3 % (0-2); Eosinophils Absolute Auto 0 /uL (0-450); Eosinophils Percent Auto 0.3 % (2-4); Hematocrit 44.3 % (41-53); Hemoglobin 14.6 g/dL (13.5-17.5); Lymphocytes Absolute Auto 900 /uL (1100-4500); Mean Corpuscular HGB Conc 32.9 % (30-36); Mean Corpuscular Hemoglobin 28.7 PG (26-34); Mean Corpuscular Volume 87.3 fL (80-100); Monocytes Absolute Auto 1200 /uL (0-900); Monocytes Percent Auto 8.1 % (3-14); Neutrophils Absolute Auto 12500 /uL (1500-7000); Neutrophils Percent Auto 85.3 % (50-75); Platelet Count 224 X10^3/uL (150-400); Red Blood Cell Count 5.07 X10^6/uL (4.5-5.9); Red Cell Distribution Width 13.8 % (11.6-14.8); White Blood Cell Count 14.7 X10^3/uL (4.5-11.0)
[2024-08-13 17:37] LABS: Alanine Aminotransferase 22 IU/L (<50); Albumin 3.9 g/dL (3.5-5.0); Albumin Globulin Ratio 1.2 (1.0-2.8); Alkaline Phosphatase 60 U/L (38-126); Aspartate Aminotransferase 20 IU/L (17-59); BUN Creatinine Ratio 19.5 (6-22); Bilirubin Total 1.4 mg/dL (0.2-1.3); Blood Urea Nitrogen 16 mg/dL (9-20); Calcium 9.6 mg/dL (8.4-10.2); Carbon Dioxide 28 mmol/L (22-32); Chloride 97 mmol/L (98-107); Estimated Glomerular Filt Rate > 60 mL/min (>60); Globulin 3.3 g/dL (1.7-4.1); Glucose 264 mg/dL (70-100); HEMOLYSIS < 15 (0-50); Lipase 22 U/L (23-300); Potassium 4.5 mmol/L (3.4-5.1); Sodium 134 mmol/L (137-145); Total Protein 7.2 g/dL (6.3-8.2)
[2024-08-13] MEDS: ONDANSETRON 4 MG/2 ML INJ IV (17:40)
[2024-08-13] MEDS: cefTRIAXone 1,000 MG in SODIUM CHLORIDE 0.9% 100 ML 200 MG IV (19:17)
[2024-08-13] MEDS: DOXYCYCLINE HYCLATE 100 MG TABLET PO (19:19)
[2024-08-13] MEDS: CLINDAMYCIN 900 MG/50 ML PIGGYBACK 50 MG IV (19:45)
== END 2024-08-13 21:12 | disposition home or self-care (01) ==
PROVIDERS: Emergency Medicine; Emergency Provider Emergency Medicine; Family Provider Family Medicine; PCP Family Medicine
DX: L03.115 Cellulitis of right lower limb (principal); E11.9 Type 2 diabetes mellitus without complications; Z79.4 Long term (current) use of insulin
CPT/HCPCS: 36415; 72193; 80053; 83605; 83690; 85025; 87040; 96365; 96367; 96375; 99284; J0696; J2405; Q9967

== ENCOUNTER 2024-08-15 00:29 | Emergency (ER) | payer OTHER, SELFPAY ==
[2024-08-15 00:36] VITALS: BP 158/84; PULSE 102; RESP 19; TEMP 36.7; O2SAT 98; BMI 51.5
--- NOTE | 2024-08-15 00:40 | PC.NURSE ---
Pt seen on 08/13/24 for same issue and advised to return to ER for follow up.
--- NOTE | 2024-08-15 00:47 | ED_ITS ---
HPI - Skin/Abscess/Foreign Bdy General Chief complaint: Skin/Abscess/Foreign Body Stated complaint: f/u from previous er visit Time Seen by Provider: 08/15/24 00:42 Source: patient Mode of arrival: Ambulatory Limitations: no limitations History of Present Illness HPI narrative: 54-year-old male with history of diabetes, had redness to right groin area, seen by here, initial IV ceftriaxone given, CT IV contrast left lower extremity performed, no drainable fluid, case was discussed with cross covering physician Dr. Hammonds, we elected to start patient on clindamycin and doxycycline for discharge and treat as an outpatient with close follow up. IV clindamycin was used yesterday prior to discharge. Oral doxycycline given in the emergency department as well. Prescriptions for clindamycin and doxycycline were provided, patient was able to fill these in his taking those antibiotics. Here for wound recheck as he could not get into clinic with Dr. Hammonds or Dr. Hutchinson. He is obese, has difficulty seeing in the area, but feels that the pain and warmth seems to be decreasing, generally feels like it is improving compared to yesterday. No fevers or chills. He has not having any trouble getting the anti biotics down, no nausea or vomiting. No rash or itching on the new antibiotics. Related Data Previous Rx's Medication Instructions Recorded Glucose: Home Monitoring Kit #1 ea 12/31/19 glucose lancets #100 ea 12/31/19 blood sugar diagnostic (Blood #200 strips 01/14/20 Glucose Test strips) sildenafil (pulm.hypertension) 20 100 mg (5 x 20 mg) PO QDAY #30 tabs 12/11/22 mg tablet pen needle, diabetic 31 gauge x #100 ea 06/25/23/ (Pentips) cephalexin 500 mg capsule 500 mg PO TID #21 caps 04/28/24 phenazopyridine 200 mg tablet 200 mg PO TID PRN pain 6 doses #6 04/28/24 (Pyridium) tabs atorvastatin 20 mg tablet 20 mg PO DAILY #90 tabs 07/06/24 escitalopram oxalate 10 mg tablet 10 mg PO DAILY #90 tabs 07/06/24 glimepiride 2 mg tablet 2 mg PO BID #180 tabs 07/06/24 insulin NPH isoph U-100 human 100 52 unit (0.52 mL) SUBCUT BID #45 mL 07/06/24 unit/mL (3 mL) subcutaneous pen (Humulin N NPH U-100 Insulin KwikPen) lisinopril 40 mg tablet 40 mg PO DAILY #90 tabs 07/06/24 metformin 1,000 mg tablet See Rx Instructions .Route 07/06/24 .COMPLEX #180 tabs clindamycin HCl 300 mg capsule 300 mg PO Q6H Dental infection 7 08/13/24 days #28 caps doxycycline hyclate 100 mg capsule 100 mg PO DAILY #14 caps 08/13/24 Allergies Allergy/AdvReac Type Severity Reaction Status Date / Time No Known Drug Allergies Allergy Verified 08/13/24 16:13 Patient History Medical History Foot pain (~1994) Ankle pain (~1994) Diabetes mellitus (~2013) Surgical History Pilonidal cyst (~1989) Family History Mother Hypertension High cholesterol Father No problems noted. Social History Smoking Status: Former smoker Smoking Status: Former smoker alcohol intake frequency: 0-2 drinks per day Exam Narrative Exam Narrative: GENERAL: Well-developed patient, in mild distress. HEAD: Atraumatic. Normocephalic. EYES: Conjugate gaze, white sclerae ENT: No obvious facial trauma, no obvious swelling to lips, no hives or urticaria NECK: Trachea midline. Non tender CARDIOVASCULAR: Regular rate and rhythm without murmurs, gallops, or rubs. RESPIRATORY: Clear to auscultation. Breath sounds equal bilaterally. No wheezes, rales, or rhonchi. GASTROINTESTINAL: Abdomen large pannus, erythema to pannus crease similar to prior examination. EXTREMITIES: Warmth and induration to the right inguinal crease, non fluctuant, redness fading to pink proximal to distal, total area of pink redness seems decreased from prior examination. NEURO: Motor functions grossly nonfocal. SKIN: No rash or erythema of visible areas Initial Vital Signs Initial Vital Signs: Vital Signs Temperature 98.1 F 08/15/24 00:36 Pulse Rate 102 H 08/15/24 00:36 Respiratory Rate 19 08/15/24 00:36 Blood Pressure 158/84 H 08/15/24 00:36 Pulse Oximetry 98 08/15/24 00:36 Oxygen Delivery Method Room Air 08/15/24 00:36 Course Vital Signs Vital signs: Vital Signs - 8 hr 08/15/24 00:36 Temperature 98.1 F Pulse Rate 102 H Respiratory Rate 19 Blood Pressure 158/84 H Pulse Oximetry 98 Oxygen Delivery Method Room Air MDM - Skin/Abscess/Foreign Bdy MDM Narrative Medical decision making narrative: Wound recheck follow up cellulitis, history of diabetes, prior ceftriaxone, IV clindamycin, oral doxycycline. Taking oral clindamycin and doxycycline. History of diabetes. No fevers. Afebrile, sirs screen negative. Generally he feels like he is improving, has difficulty seeing this area as he has obese abdomen/pannus. On my exam the area of induration seems later and less red, also smaller area inferior aspect more proximal now, no fluctuance. Prior CT scanning with IV contrast showed no drainable fluid. I do not feel that we need to repeat any imaging at this time. Symptoms seemed to be improving day to antibiotics. Continue oral clindamycin and doxycycline regimen. Follow up with Dr. Hammonds or Dr. Hutchinson on Saturday advised, or here in the emergency department if no other arrangements can be made. Patient expressed understanding of plan and was in agreement, was discharged home, stable/improving Discharge Plan Departure Patient Disposition: Home Clinical Impression: Cellulitis of right leg, Encounter for wound re-check Activity Restrictions/Additional Instructions: Cellulitis seems to be improving, day to oral clindamycin and doxycycline antibiotics, after previous ceftriaxone and clindamycin IV yesterday 1st encounter. Continue taking your or antibiotic regimen. Less redness compared to yesterday by my exam when I saw you on 1st visit. No fever on triage. Continue antibiotic regimen for now. Wound check advised on Saturday with your regular primary care team, or here in the emergency department if he can not make other arrangements. Return earlier if any change worsening symptoms or any concerns prior Prescriptions: No Action sildenafil (pulm.hypertension) 20 mg tablet 100 mg PO QDAY Qty: 30 1RF cephalexin 500 mg capsule 500 mg PO TID Qty: 21 0RF phenazopyridine [Pyridium] 200 mg tablet 200 mg PO TID PRN (Reason: pain) Qty: 6 0RF (DME) Glucose: Home Monitoring Kit 0 .Route .MEDSUPPLY Qty: 1 1RF Rx Instructions: As directed for daily blood glucose checks (DME) glucose lancets Qty: 100 3RF Rx Instructions: As directed for daily blood glucose testing (DME) pen needle, diabetic [Pentips] 31 gauge x 3/16 needle See Rx Instructions .ROUTE .MEDSUPPLY Qty: 100 3RF Rx Instructions: used twice daily for insulin injections glimepiride 2 mg tablet 2 mg PO BID Qty: 180 1RF escitalopram oxalate 10 mg tablet 10 mg PO DAILY Qty: 90 1RF Rx Instructions: Take 1 tablet once daily atorvastatin 20 mg tablet 20 mg PO DAILY Qty: 90 1RF Humulin N NPH Insulin KwikPen 100 unit/mL (3 mL) insulin pen 52 unit SUBCUT BID Qty: 45 1RF Rx Instructions: Inject 52 units under the skin twice daily. lisinopril 40 mg tablet 40 mg PO DAILY Qty: 90 1RF metformin 1,000 mg tablet See Rx Instructions .ROUTE .COMPLEX Qty: 180 1RF Dose Instruction: take 1 tablet by mouth twice a day with meals Rx Instructions: take 1 tablet by mouth twice a day with meals (DME) blood sugar diagnostic [Blood Glucose Test] Strip See Rx Instructions .ROUTE .MEDSUPPLY Qty: 200 3RF Rx Instructions: check blood sugar twice day, fasting am, non fasting pm clindamycin HCl 300 mg capsule 300 mg PO Q6H 7 Days Qty: 28 0RF doxycycline hyclate 100 mg capsule 100 mg PO DAILY Qty: 14 0RF Referrals: El Hutchinson MD [Primary Care Provider] - Stand Alone Forms: Patient Portal/API/Survey
== END 2024-08-15 00:57 | disposition home or self-care (01) ==
PROVIDERS: Emergency Provider Emergency Medicine; Family Provider Family Medicine; PCP Family Medicine
DX: Z48.00 Encounter for change or removal of nonsurgical wound dressing (principal); L03.115 Cellulitis of right lower limb
CPT/HCPCS: 99281